=== PATIENT | female | born 1955 | race Caucasian/White ===

== ENCOUNTER 2016-11-03 13:31 | Inpatient (IN) | payer MEDICARE ==
[2016-11-03] MEDS ORDERED: DUONEB 0.5-3 MG/3 ml Neb IH ONE ×2 (13:43→13:54)
--- NOTE | 2016-11-03 13:54 | ERPHSYRPT ---
- History of Present Illness Time Seen by Provider: 11/03/16 13:49 Source: patient Exam Limitations: no limitations Physician History: 61-year-old white female arrives with complaint of short of breath cough symptoms for a week she has apparently been on Z-[place] patient states she wasn't short of breath cough is productive of clear sputum she denies any pain no nausea no vomiting patient is noted have a fever on arrival. Patient states she has been using an inhaler at home Past medical history includes seizures, arrhythmia, COPD, diabetes, hypothyroidism, anxiety, depression, chronic atrial fibrillation, patient is on Coumadin. Past surgical history includes cholecystectomy, hysterectomy, cardiac catheter, , hysterectomy, left knee surgery Timing/Duration: week(s) (one week) Activities at Onset: none Severity of Dyspnea-Max: moderate Severity of Dyspnea-Current: moderate Possible Cause: occasional episodes Associated Symptoms: constant, cough, fever, wheezing, No intermittent, No anxiety, No chest pain/discomfort, No edema, No insomnia, No loss of appetite, No lightheadedness, No weakness, No ankle swelling, No chills, No hemoptysis, No calf pain, No dizziness, No heaviness, No heart racing, No lightheadedness, No leg swelling, No muscle spasms feet, No muscle spasms hands, No painful breathing, No productive cough, No sweating, No tightness, No tingling face International travel in last 2 weeks: No Allergies/Adverse Reactions: codeine [Codeine] Allergy (Intermediate, Verified 11/03/16 13:52) Vomiting Home Medications: Amiodarone HCl 200 mg [Cordarone 200 MG] 200 mg PO HS 07/02/11 [History] Montelukast Sodium 10 mg [Singulair 10 MG] 10 mg PO DAILY 07/02/11 [History] Aspirin 81 mg PO DAILY 04/23/13 [History] Desvenlafaxine Succinate [Pristiq] 100 mg PO DAILY 04/23/13 [History] Multivitamin [Multi-Vitamin Daily] 1 tab PO DAILY 04/23/13 [History] Albuterol Sulfate [Proair Hfa] 2 puff IH Q4H PRN 07/28/13 [History] Calcium Carbonate/Vitamin D3 [Calcium 600-Vit D3 200 Tablet] 1 each PO TID 07/28 [History] Gabapentin [Neurontin] 800 mg PO TID 07/28/13 [History] Ropinirole HCl [Requip] 5 mg PO HS 07/28/13 [History] Trazodone HCl 50 mg [Desyrel 50 mg] 50 mg PO HS 07/28/13 [History] Cholecalciferol (Vitamin D3) [Vitamin D] 5,000 unit PO 2XW 07/03/14 [History] Clonazepam 0.5 mg [Klonopin 0.5 MG] 0.5 mg PO TID 07/03/14 [History] Cyclobenzaprine HCl [Flexeril] 5 mg PO TID 07/03/14 [History] Metformin HCl 800 mg PO DAILY 06/17/15 [History] Omeprazole 20 MG [Prilosec 20 mg] 20 mg PO DAILY 06/17/15 [History] Warfarin Sodium 5 mg [Coumadin 5 MG] 5 mg PO DAILY 06/17/15 [History] Duloxetine HCl 30 mg [Cymbalta 30 MG Capsule] 30 mg PO DAILY 07/25/15 [ History] Tiotropium [place] Inhaler [Spiriva 18 Mcg/Cap Inhaler] 1 ea IH DAILY [History] Albuterol 2.5 mg/3 ml Neb [Proventil 2.5 mg/3 ml Neb] 2.5 mg IH QID [History] Budesonide/Formoterol Fumarate [Symbicort 80-4.5 Mcg Inhaler] 2 puff IH DAILY [History] Fluticasone Propionate [Flonase NASAL] 2 sprays NS DAILY 11/06/15 [History ] Fenofibrate Nanocrystallized [Tricor] 48 mg PO HS 11/25/15 [History] Loratadine 10 mg [Claritin 10 mg] 10 mg PO DAILY 11/25/15 [History] Ondansetron HCl 4 mg PO .PRN 11/25/15 [History] Hx Tetanus, Diphtheria Vaccination/Date Given: Yes (unknown) Hx Influenza Vaccination/Date Given: No Hx Pneumococcal Vaccination/Date Given: Yes - Review of Systems Constitutional: Fever, No Chills, No Fatigue, No Lethargy, No Malaise, No Night Sweats, No Weakness, No Weight Loss Eyes: No Symptoms Ears, Nose, & Throat: No Ear Pain, No Ear Discharge, No Hearing Changes, No Tinnitus, No Nose Pain, No Nose Congestion, No Nose Discharge, No Sinus Drainage , No Epistaxis, No Mouth Pain, No Mouth Swelling, No Loose Teeth, No Throat Pain , No Throat Swelling, No Hoarse, No Painful Swallowing, No Snoring, No Stridor Respiratory: Cough, Dyspnea, Wheezing, No Cyanosis, No Dyspnea on Exertion (HOUGH) , No Other Cardiac: No Chest Pain, No Edema, No Syncope Abdominal/Gastrointestinal: No Abdominal Pain, No Nausea, No Vomiting, No Diarrhea, No Constipation, No Hematemesis, No Hematochezia, No Melena, No Dysphagia, No Appetite Changes Genitourinary Symptoms: No Dysuria Musculoskeletal: No Back Pain, No Neck Pain Skin: No Rash Neurological: No Dizziness, No Focal Weakness, No Sensory Changes Psychological: No Symptoms Endocrine: No Symptoms All Other Systems: Reviewed and Negative - Past Medical History Pertinent Past Medical History: Yes Neurological History: Seizures ENT History: No Pertinent History Cardiac History: Arrhythmia Respiratory History: COPD Endocrine Medical History: Diabetes Type II, Hypothyroidism Musculoskeletal History: No Pertinent History GI Medical History: No Pertinent History History: No Pertinent History Psycho-Social History: Anxiety, Depression Female Reproductive Disorders: No Pertinent History Other Medical History: CHRONIC AFIB, ovarian cyst removal - Past Surgical History Past Surgical History: Yes (GALL BLADDER HYSTERECTOMY) Neuro Surgical History: No Pertinent History Cardiac: Cardiac Catheterization Respiratory: No Pertinent History Gastrointestinal: Cholecystectomy Genitourinary: No Pertinent History Musculoskeletal: Orthopedic Surgery Female Surgical History: Section, Hysterectomy Other Surgical History: 2 sections, right knee sx - Social History Smoking Status: Current some day smoker How long have you smoked: 30 years Exposure to second hand smoke: No Drug Use: none Patient Lives Alone: Yes - Female History Hx Now: No - Nursing Vital Signs Nursing Vital Signs: Initial Vital Signs Temperature 101.1 F 11/03/16 13:45 Pulse Rate 110 H 11/03/16 13:45 Respiratory Rate 30 H 11/03/16 13:45 Blood Pressure 135/87 11/03/16 13:45 O2 Sat by Pulse Oximetry 80 L 11/03/16 13:45 Pain Scale Pain Intensity 0 - Physical Exam General Appearance: moderate distress, other (well-developed well-nourished white female appears to be short of breath) Eye Exam: PERRL/EOMI Ears, Nose, Throat Exam: hearing grossly normal, normal ENT inspection, pharyngeal erythema, No abnormal TM (R), No abnormal TM (L) Neck Exam: normal inspection, non-tender, supple Respiratory Exam: diminished breath sounds (lungs diminished breath s), rhonchi , wheezing, other Cardiovascular/Chest Exam: tachycardia Abdominal/Gastrointestinal Exam: soft, No tenderness, No distention, No mass Extremity Exam: non-tender, normal range of motion, normal inspection, no calf tenderness, no pedal edema Peripheral Pulses Exam: dorsalis-pedis (R): 2+, dorsalis-pedis (L): 2+ Neurologic Exam: alert, oriented x 3, cooperative, supervisor sewer system II-XII nml as tested, sensation nml, No motor deficits Skin Exam: normal color, warm, No dry SpO2 Interpretation: hypoxic (80) - Course Nursing assessment & vital signs reviewed: Yes EKG Interpreted by Me: RATE, A-fib, NORMAL AXIS, Other (EKG: atrial fibrillation 1 10 bpm, normal axis, no acute ST or T wave changes) - Radiology Exams Chest X-ray Interpretation: Discussed w/ radiologist, Other (chest x-ray: Impression: 1. Patchy by basilar airspace infiltrates are seen which appear to be new from the prior one view chest on July 25, 2015 findings consistent with by basilar pneumonia) - CT Exams Chest CT Interpretation: Discussed w/radiologist (CTA chest: Impression: 1. Nonocclusive pulmonary embolus right middle lobe lateral segment 2. Noncalcified right upper lobe pulmonary no primary neoplasia not exc. 3. Mediastinal and hilar lymphadenopathy with multiple additional small intra- pulmonary nodules. Differential diagnosis could include granulomatous disease including sarcoidosis, as well as other infectious etiologies and neoplasia clinical correlation is recommended. 4 short segment left lower lobe endobronchial mucus plugging. 5. Status post cholecystectomy) Ordered Tests: Active Orders 24 hr Category Date Time Status Bedrest with BRP/BSC ROUTINE Activity 11/03/16 18:02 Active Admission/Status Order ROUTINE Care 11/03/16 18:02 Active [employer]ic Helper STAT Care 11/03/16 13:54 Completed Code Status Order ROUTINE Care 11/03/16 18:02 Active EKG-ER Only TODAY Care 11/03/16 13:54 Completed IV Care Q6H Care 11/03/16 18:02 Active IV Insertion STAT Care 11/03/16 13:54 Completed Pulse Oximetry (ED) STAT Care 11/03/16 13:54 Completed Terrence Arango, Apply ROUTINE Care 11/03/16 18:02 Active Telemetry ROUTINE Care 11/03/16 18:02 Active Weight,Daily 0600 Care 11/03/16 18:02 Active cath [Cath for Specimen-Straight] STAT Care 11/03/16 14:11 Completed 1800 Calorie ADA Diet 11/03/16 Breakfast Active CHEST 1 VIEW (PORTABLE) Stat Exams 11/03/16 13:54 Completed CHEST WITH CONTRAST [CT] Stat Exams 11/03/16 15:55 Taken ARTERIAL BLOOD GASES Stat Lab 11/03/16 13:50 Completed BLOOD CULTURE Stat Lab 11/03/16 14:00 Received CBC W DIFF AM.LAB Lab 11/04/16 04:00 Ordered CBC W DIFF Stat Lab 11/03/16 13:55 Completed CMP AM.LAB Lab 11/04/16 04:00 Ordered CMP Stat Lab 11/03/16 13:55 Completed CULTURE, THROAT Stat Lab 11/03/16 14:10 Received CULTURE,URINE Stat Lab 11/03/16 13:55 Received D-DIMER QUANTITATION Stat Lab 11/03/16 13:55 Completed Lactic Acid Stat Lab 11/03/16 13:50 Completed NT PRO BNP Stat Lab 11/03/16 13:55 Completed PROTIME WITH INR Stat Lab 11/03/16 13:55 Completed PTT Stat Lab 11/03/16 13:55 Completed STREP SCREEN-BETA A Stat Lab 11/03/16 14:10 Completed TROPONIN Q3H Lab 11/03/16 14:30 Completed TROPONIN Q3H Lab 11/03/16 17:42 Received TROPONIN Q3H Lab 11/03/16 20:30 Ordered TROPONIN Q3H Lab 11/03/16 23:30 Ordered TROPONIN Q3H Lab 11/04/16 02:30 Ordered UA W/ MICROSCOPIC Stat Lab 11/03/16 13:55 Completed BiPap/CPAP Assessment STAT RT 11/03/16 14:45 Completed Oxygen NASAL CANNULA 6 lpm RT 11/03/16 18:02 Active Respiratory Nebulizer STAT RT 11/03/16 13:56 Completed Respiratory Nebulizer STAT RT 11/03/16 15:56 Completed Transfer Order Routine Transfer 11/03/16 Completed Medication Summary Generic Name Dose Route Start Last Admin Trade Name Xiomara PRN Reason Stop Dose Admin Albuterol/Ipratropium 3 ml 11/03/16 18:02 Duoneb 0.5-3 Mg/3 Ml Neb IH 12/03/16 18:01 Q4HPRN PRN SHORTNESS OF BREATH/WHEEZING Enoxaparin Sodium 60 mg 11/03/16 18:02 Enoxaparin Sodium 1 mg/kg (60 mg) 12/03/16 18:01 SQ Q12H GIA Azithromycin 500 mg in 250 mls @ 250 mls/hr 11/04/16 10:00 Zithromax 500 Mg/ 250 Ml Nacl Premix IV 12/04/16 09:59 Q24H10 GIA Ceftriaxone Sodium/Dextrose 1 g in 50 mls @ 100 mls/hr 11/04/16 10:00 Rocephin 1 Gm-D5w 50 Ml Bag IV 12/04/16 09:59 Q24H10 GIA Sodium Chloride 1,000 mls @ 100 mls/hr 11/03/16 18:02 Sodium Chloride 0.9% 1000 Ml IV 12/03/16 18:01 .Q10H GIA Insulin Aspart 0 unit 11/03/16 18:02 Novolog Insulin SQ 12/03/16 18:01 UD PRN HYPERGLYCEMIA Methylprednisolone Sodium Succinate 80 mg 11/03/16 18:02 Solu-Medrol 125 Mg IV 12/03/16 18:01 Q6H GIA Discontinued Medications Generic Name Dose Route Start Last Admin Trade Name Xiomara PRN Reason Stop Dose Admin Acetaminophen 650 mg 11/03/16 16:45 11/03/16 16:49 Tylenol 325 Mg PO 11/03/16 16:46 650 mg STAT STA Administration Acetaminophen Confirm 11/03/16 16:48 Tylenol 325 Mg Administered 11/03/16 16:49 Dose 650 mg .ROUTE .STK-MED ONE Albuterol Sulfate 2.5 mg 11/03/16 15:55 11/03/16 16:07 Proventil 2.5 Mg/3 Ml Neb IH 11/03/16 15:56 2.5 mg STAT ONE Administration Albuterol Sulfate Confirm 11/03/16 16:06 Proventil 2.5 Mg/3 Ml Neb Administered 11/03/16 16:07 Dose 2.5 mg IH .STK-MED ONE Albuterol/Ipratropium Confirm 11/03/16 13:43 Duoneb 0.5-3 Mg/3 Ml Neb Administered 11/03/16 13:44 Dose 3 ml IH .STK-MED ONE Albuterol/Ipratropium 3 ml 11/03/16 13:54 11/03/16 13:45 Duoneb 0.5-3 Mg/3 Ml Neb IH 11/03/16 13:55 3 ml STAT ONE Administration Enoxaparin Sodium 60 mg 11/03/16 17:41 11/03/16 17:45 Enoxaparin Sodium 1 mg/kg (60 mg) 11/03/16 17:42 60 mg SQ Administration STAT ONE Enoxaparin Sodium Confirm 11/03/16 17:43 Enoxaparin Sodium Administered 11/03/16 17:44 Dose 80 mg SQ .STK-MED ONE Ceftriaxone Sodium/Dextrose 1 g in 50 mls @ 100 mls/hr 11/03/16 15:55 16:05 Rocephin 1 Gm-D5w 50 Ml Bag IV 11/03/16 16:24 100 mls/hr STAT STA Administration Ceftriaxone Sodium/Dextrose Confirm 11/03/16 16:02 Rocephin 1 Gm-D5w 50 Ml Bag Administered 11/03/16 16:03 Dose 1 g in 50 mls @ ud IV .STK-MED ONE Methylprednisolone Sodium Succinate 125 mg 11/03/16 14:20 11/03/16 14:24 Solu-Medrol 125 Mg IV 11/03/16 14:21 125 mg STAT ONE Administration Methylprednisolone Sodium Succinate Confirm 11/03/16 14:22 Solu-Medrol 125 Mg Administered 11/03/16 14:23 Dose 125 mg .ROUTE .STK-MED ONE Lab/Rad Data: Laboratory Result Diagrams 11/03/16 13:55 11/03/16 13:55 Laboratory Results 11/03/16 11/03/16 11/03/16 Range/Units 14:30 14:10 13:55 WBC (4.0-10.5) K/mm3 RBC (4.1-5.4) M/mm3 Hgb (12.0-16.0) gm/dl Hct (35-47) % MCV (78-100) fl MCH (26-32) pg MCHC (32-36) g/dl RDW (11.5-14.0) % Plt Count (150-450) K/mm3 MPV (6-9.5) fl Gran % (36.0-66.0) % Lymphocytes % (24.0-44.0) % Monocytes % (0.0-12.0) % Eosinophils % (0.00-5.0) % Basophils % (0.0-0.4) % Basophils # (0-0.4) INR 1.21 (0.8-3.0) APTT 33.4 (25.3-37.0) SECONDS D-Dimer 1637 H* (0-500) ng/mL Puncture Site pCO2 (35-45) mmHg pO2 (75-100) mmHg Base Excess (-2.0-2.0) O2 Saturation (94-100) g/dF ABG pH (7.35-7.45) ABG HCO3 (22-28) ABG O2 Sat (Measured) (95-100) % Sam Test A-a Gradient a/A Ratio Hemoglobin Carboxyhemoglobin (0.0-6.9) % THgb Methemoglobin (1.4-1.5) % Potassium (3.5-5.1) Temperature C POC O2 Flow Rate % Sodium (136-145) mEq/L Chloride (98-107) mEq/L Carbon Dioxide (21-32) mEq/L Anion Gap (5-15) MEQ/L BUN (9-20) mg/dL Creatinine (0.55-1.30) mg/dl Estimated GFR ML/MIN Glucose (70-110) MG/DL Lactic Acid (0.4-2.0) Calcium (8.5-10.1) mg/dL Total Bilirubin (0.2-1.0) mg/dL AST (15-37) U/L ALT (12-78) U/L Alkaline Phosphatase (46-116) U/L Troponin I < 0.017 (0.000-0.056) ng/ml NT-Pro-B Natriuret Pep (0-125) pg/ml Serum Total Protein (6.4-8.2) gm/dL Albumin (3.4-5.0) g/dL Ur Collection Type Urine Color (YELLOW) Urine Appearance (CLEAR) Urine pH (5-6) Ur Specific [place] (1.005-1.025) Urine Protein (Negative) Urine Ketones (NEGATIVE) Urine Blood (0-5) Claudio/ul Urine Nitrite (NEGATIVE) Urine Bilirubin (NEGATIVE) Urine Urobilinogen (0-1) mg/dL Ur Leukocyte Esterase (NEGATIVE) Urine Microscopic RBC (0-2) /HPF Urine Microscopic WBC (0-5) /HPF Ur Epithelial Cells (FEW) /HPF Urine Bacteria (NEGATIVE) /HPF Urine Glucose (NEGATIVE) mg/dL Streptococcus Screen NEGATIVE (Negative) Specimen Received 11/03/16 11/03/16 11/03/16 Range/Units 13:55 13:55 13:55 WBC 8.0 (4.0-10.5) K/mm3 RBC 4.20 (4.1-5.4) M/mm3 Hgb 13.7 (12.0-16.0) gm/dl Hct 40.4 (35-47) % MCV 96.2 (78-100) fl MCH 32.6 H (26-32) pg MCHC 33.9 (32-36) g/dl RDW 13.6 (11.5-14.0) % Plt Count 179 (150-450) K/mm3 MPV 9.3 (6-9.5) fl Gran % 84.5 H (36.0-66.0) % Lymphocytes % 9.1 L (24.0-44.0) % Monocytes % 6.4 (0.0-12.0) % Eosinophils % 0.0 (0.00-5.0) % Basophils % 0.0 (0.0-0.4) % Basophils # 0 (0-0.4) INR (0.8-3.0) APTT (25.3-37.0) SECONDS D-Dimer (0-500) ng/mL Puncture Site pCO2 (35-45) mmHg pO2 (75-100) mmHg Base Excess (-2.0-2.0) O2 Saturation (94-100) g/dF ABG pH (7.35-7.45) ABG HCO3 (22-28) ABG O2 Sat (Measured) (95-100) % Sam Test A-a Gradient a/A Ratio Hemoglobin Carboxyhemoglobin (0.0-6.9) % THgb Methemoglobin (1.4-1.5) % Potassium 3.5 (3.5-5.1) Temperature C POC O2 Flow Rate % Sodium 138 (136-145) mEq/L Chloride 98 (98-107) mEq/L Carbon Dioxide 28.5 (21-32) mEq/L Anion Gap 14.8 (5-15) MEQ/L BUN 9 (9-20) mg/dL Creatinine 0.76 (0.55-1.30) mg/dl Estimated GFR > 60 ML/MIN Glucose 133 H (70-110) MG/DL Lactic Acid (0.4-2.0) Calcium 9.5 (8.5-10.1) mg/dL Total Bilirubin 0.50 (0.2-1.0) mg/dL AST 14 L (15-37) U/L ALT 11 L (12-78) U/L Alkaline Phosphatase 86 (46-116) U/L Troponin I (0.000-0.056) ng/ml NT-Pro-B Natriuret Pep 45 (0-125) pg/ml Serum Total Protein 7.9 (6.4-8.2) gm/dL Albumin 3.4 (3.4-5.0) g/dL Ur Collection Type CATH Urine Color YELLOW (YELLOW) Urine Appearance CLEAR (CLEAR) Urine pH 5.0 (5-6) Ur Specific [place] 1.010 (1.005-1.025) Urine Protein 1+ (Negative) Urine Ketones NEGATIVE (NEGATIVE) Urine Blood 250 (0-5) Claudio/ul Urine Nitrite NEGATIVE (NEGATIVE) Urine Bilirubin NEGATIVE (NEGATIVE) Urine Urobilinogen NORMAL (0-1) mg/dL Ur Leukocyte Esterase TRACE (NEGATIVE) Urine Microscopic RBC 0-2 (0-2) /HPF Urine Microscopic WBC 2-5 (0-5) /HPF Ur Epithelial Cells RARE (FEW) /HPF Urine Bacteria FEW (NEGATIVE) /HPF Urine Glucose NEGATIVE (NEGATIVE) mg/dL Streptococcus Screen (Negative) Specimen Received 11/03/16 1739 11/03/16 11/03/16 Range/Units 13:50 13:50 WBC (4.0-10.5) K/mm3 RBC (4.1-5.4) M/mm3 Hgb (12.0-16.0) gm/dl Hct (35-47) % MCV (78-100) fl MCH (26-32) pg MCHC (32-36) g/dl RDW (11.5-14.0) % Plt Count (150-450) K/mm3 MPV (6-9.5) fl Gran % (36.0-66.0) % Lymphocytes % (24.0-44.0) % Monocytes % (0.0-12.0) % Eosinophils % (0.00-5.0) % Basophils % (0.0-0.4) % Basophils # (0-0.4) INR (0.8-3.0) APTT (25.3-37.0) SECONDS D-Dimer (0-500) ng/mL Puncture Site RIGHT RADIAL pCO2 34 L (35-45) mmHg pO2 53 L (75-100) mmHg Base Excess 4.3 H (-2.0-2.0) O2 Saturation 91.4 L (94-100) g/dF ABG pH 7.51 H (7.35-7.45) ABG HCO3 27.1 (22-28) ABG O2 Sat (Measured) 94.2 L (95-100) % Sam Test YES A-a Gradient 133 a/A Ratio 0.28 Hemoglobin 14.1 Carboxyhemoglobin 1.9 (0.0-6.9) % THgb Methemoglobin 1.1 L (1.4-1.5) % Potassium 3.4 L (3.5-5.1) Temperature 37.0 C POC O2 Flow Rate 32 % Sodium (136-145) mEq/L Chloride (98-107) mEq/L Carbon Dioxide (21-32) mEq/L Anion Gap (5-15) MEQ/L BUN (9-20) mg/dL Creatinine (0.55-1.30) mg/dl Estimated GFR ML/MIN Glucose (70-110) MG/DL Lactic Acid 1.6 (0.4-2.0) Calcium (8.5-10.1) mg/dL Total Bilirubin (0.2-1.0) mg/dL AST (15-37) U/L ALT (12-78) U/L Alkaline Phosphatase (46-116) U/L Troponin I (0.000-0.056) ng/ml NT-Pro-B Natriuret Pep (0-125) pg/ml Serum Total Protein (6.4-8.2) gm/dL Albumin (3.4-5.0) g/dL Ur Collection Type Urine Color (YELLOW) Urine Appearance (CLEAR) Urine pH (5-6) Ur Specific [place] (1.005-1.025) Urine Protein (Negative) Urine Ketones (NEGATIVE) Urine Blood (0-5) Claudio/ul Urine Nitrite (NEGATIVE) Urine Bilirubin (NEGATIVE) Urine Urobilinogen (0-1) mg/dL Ur Leukocyte Esterase (NEGATIVE) Urine Microscopic RBC (0-2) /HPF Urine Microscopic WBC (0-5) /HPF Ur Epithelial Cells (FEW) /HPF Urine Bacteria (NEGATIVE) /HPF Urine Glucose (NEGATIVE) mg/dL Streptococcus Screen (Negative) Specimen Received - Progress Progress: re-examined Air Movement: fair Progress Note: 11/03/16 15:57 Patient feeling better after IV fluids Solu-Medrol duo neb, No signs of sepsis on labs lactate within normal limits, Unfortunately patient with an elevated d-dimer Will do CT of the chest. Patient will be given repeat albuterol also will start Rocephin. 11/03/16 16:13 I have discussed the patient's case with Dr. Hobbs. Will plan to admit full admission diagnosis COPD with exacerbation, pneumonia. CTA of the chest is pending patient is on Coumadin but INR is 1.2 Will follow- up when the results are available. 11/03/16 17:36 Patient with a nonocclusive pulmonary embolus in the right middle lobe lateral segment Will give patient Lovenox. - Departure Time of Disposition: 17:37 Departure Disposition: In-patient Admission Clinical Impression: COPD (chronic obstructive pulmonary disease) Qualifiers: COPD type: COPD with acute exacerbation Qualified Code(s): J44.1 - Chronic obstructive pulmonary disease with (acute) exacerbation Pneumonia Qualifiers: Pneumonia type: due to unspecified organism Laterality: bilateral Lung location : lower lobe of lung Qualified Code(s): J18.9 - Pneumonia, unspecified organism Condition: Fair Critical Care Time: No
[2016-11-03 14:20] LABS: Bilirubin NEGATIVE (NEGATIVE); Blood 250 Ery/ul (0-5); COMPLETE URINE MICROSCOPIC? YES; Collection Type CATH; Glucose NEGATIVE (NEGATIVE); Leukocyte Esterase TRACE (NEGATIVE)
[2016-11-03] MEDS ORDERED: solu-MEDROL 125 MG IV ONE (14:20)
[2016-11-03] MEDS ORDERED: solu-MEDROL 125 MG ONE (14:22)
[2016-11-03 14:27] LABS: A-aADO2 133; ARTERIAL BLD GAS O2 SATURATION 94.2 % (95-100); ARTERIAL BLOOD GAS BASE EXCESS 4.3 (-2.0-2.0); ARTERIAL BLOOD GAS FIO2 32 %; ARTERIAL BLOOD GAS PO2 53 mmHg (75-100); ARTERIAL BLOOD GAS pH 7.51 (7.35-7.45)
[2016-11-03 14:28] LABS: ALLEN TEST OK? YES
[2016-11-03 14:36] LABS: INR 1.21 (0.8-3.0); PROTIME 13.5 SECONDS (9.95-12.35)
[2016-11-03 14:38] LABS: PTT 33.4 SECONDS (25.3-37.0)
--- NOTE | 2016-11-03 14:38 | XRAY ---
Exam: AP upright portable chest film from 1400 hrs. on 11/03/2016. Comparison: Two-view chest from 11/06/2015 and AP portable chest film from 07/25/2015. Indication: Patient complains of "symptoms of pneumonia" 8 days. Patient states she has taken a Z-[place]ari[place], and it did not help. Findings: The transverse heart size appears normal. Mild bibasilar patchy infiltrates are seen. These findings are largely new from the portable chest radiograph of 07/25/2015. I believe there are some underlying chronic bilateral lung markings as well, but the patchy bibasilar infiltrates are the new significant finding. The remainder of the lung warner appears clear. The central pulmonary arteries are prominent representing no significant interval change. No pneumothorax or pleural effusion is seen. No acute osseous process is seen. Impression: 1. Patchy bibasilar air space infiltrates are seen which appear to be new from the prior one view chest on 07/25/2015. The findings are consistent with bibasilar pneumonia.
[2016-11-03 14:43] LABS: Granulocytes % 84.5 % (36.0-66.0); Lymphocytes % 9.1 % (24.0-44.0); Mean Cell Volume 96.2 fl (78-100); Mean Corpuscular Hemoglobin 32.6 pg (26-32); Mean Platelet Volume 9.3 fl (6-9.5); Monocytes % 6.4 % (0.0-12.0); Platelet Count 179 K/mm3 (150-450); Red Cell Distribution Width 13.6 % (11.5-14.0)
[2016-11-03 14:50] LABS: Bacteria FEW /HPF (NEGATIVE); Epithelial Cells RARE /HPF (FEW)
[2016-11-03 14:54] LABS: ALBUMIN 3.4 g/dL (3.4-5.0); ALKALINE PHOSPHATASE 86 U/L (46-116); ANION GAP 14.8 MEQ/L (5-15); BLOOD UREA NITROGEN 9 mg/dL (9-20); CHLORIDE 98 mEq/L (98-107); Carbon Dioxide 28.5 mEq/L (21-32); Glucose 133 MG/DL (70-110); Potassium 3.5 mEq/L (3.5-5.1); SGOT/AST 14 U/L (15-37); SGPT/ALT 11 U/L (12-78); SODIUM 138 mEq/L (136-145); Total Protein 7.9 gm/dL (6.4-8.2)
[2016-11-03] MEDS ORDERED: ROCEPHIN 1 Gm-D5w 50 ml Bag** 1 G/50 ML IVPB IV STA (15:55)
[2016-11-03] MEDS ORDERED: PROVENTIL 2.5 MG/3 ML NEB IH ONE ×2 (15:55→16:06)
[2016-11-03] MEDS ORDERED: HOLD METFORMIN PRODUCTS FOR 48 HOURS MC SCH (16:00)
[2016-11-03] MEDS ORDERED: ROCEPHIN 1 Gm-D5w 50 ml Bag** 1 G/50 ML IVPB IV ONE (16:02)
[2016-11-03] MEDS ORDERED: TYLENOL 325 MG PO STA (16:45)
[2016-11-03] MEDS ORDERED: TYLENOL 325 MG ONE (16:48)
[2016-11-03] MEDS ORDERED: ENOXAPARIN SODIUM SQ ONE ×2 (17:41→17:43)
[2016-11-03] MEDS ORDERED: DUONEB 0.5-3 MG/3 ml Neb IH PRN (18:02)
[2016-11-03] MEDS: Sodium Chloride 0.9% 1000 ML 1,000 ML IV SCH (18:41)
[2016-11-03] MEDS: ENOXAPARIN SODIUM SQ SCH (19:03)
[2016-11-03] MEDS: PROVENTIL 2.5 MG/3 ML NEB IH SCH ×2 (19:20→23:15)
[2016-11-03] MEDS: Advair Hfa 230/21 Mcg COMMON CANISTER IH SCH (19:23)
[2016-11-03] MEDS: Cordarone 200 MG PO SCH (23:06)
[2016-11-03] MEDS: Cyclobenzaprine 10 MG PO SCH (23:06)
[2016-11-03] MEDS: REQUIP 2MG TAB PO SCH (23:08)
[2016-11-03] MEDS: Neurontin 400 MG PO SCH (23:09)
[2016-11-03] MEDS: DESYREL 50 MG PO SCH (23:10)
[2016-11-03] MEDS: NovoLOG Insulin SQ PRN (23:13)
[2016-11-03] MEDS: solu-MEDROL 125 MG IV SCH (23:13)
[2016-11-04 03:16] LABS: Granulocytes % 92.8 % (36.0-66.0); Lymphocytes % 5.9 % (24.0-44.0); Mean Cell Volume 95.1 fl (78-100); Mean Platelet Volume 9.2 fl (6-9.5); Monocytes % 1.3 % (0.0-12.0); Platelet Count 168 K/mm3 (150-450); Red Blood Count 3.48 M/mm3 (4.1-5.4); Red Cell Distribution Width 13.2 % (11.5-14.0); White Blood Count 6.1 K/mm3 (4.0-10.5)
[2016-11-04] MEDS: PROVENTIL 2.5 MG/3 ML NEB IH SCH ×5 (03:16→19:00)
[2016-11-04 03:56] LABS: ALBUMIN 2.8 g/dL (3.4-5.0); ALKALINE PHOSPHATASE 74 U/L (46-116); BLOOD UREA NITROGEN 11 mg/dL (9-20); CHLORIDE 101 mEq/L (98-107); Carbon Dioxide 26.6 mEq/L (21-32); Glucose 239 MG/DL (70-110); Potassium 3.4 mEq/L (3.5-5.1); SGOT/AST 10 U/L (15-37); SGPT/ALT 9 U/L (12-78); SODIUM 138 mEq/L (136-145)
[2016-11-04] MEDS: solu-MEDROL 125 MG IV SCH ×5 (04:29→23:58)
[2016-11-04] MEDS: Sodium Chloride 0.9% 1000 ML 1,000 ML IV SCH ×2 (04:38→14:35)
[2016-11-04] MEDS: ENOXAPARIN SODIUM SQ SCH ×2 (05:54→18:16)
[2016-11-04] MEDS ORDERED: DUONEB 0.5-3 MG/3 ml Neb IH ONE (06:53)
[2016-11-04] MEDS: Advair Hfa 230/21 Mcg COMMON CANISTER IH SCH ×2 (06:55→19:00)
[2016-11-04] MEDS ORDERED: CHOLECALCIFEROL 5000 UNIT PO SCH (08:15)
[2016-11-04] MEDS ORDERED: NON-FORMULARY ITEM (Ondansetron Hcl [Ondansetron Hcl] 4 MG) PO SCH (08:15)
[2016-11-04] MEDS ORDERED: Ventolin Hfa MDI IH SCH (08:15)
[2016-11-04] MEDS ORDERED: ZOFRAN ODT 4 MG PO PRN (08:30)
[2016-11-04] MEDS ORDERED: PROVENTIL COMMON CANISTER IH PRN (08:31)
--- NOTE | 2016-11-04 09:11 | PCM.HP ---
History of Present Illness - Chief Complaint Chief Complaint: c/o shortness of breath for 2-3 days History of Present Illness: is a 61 year old female.came to ER with shortness of breath for 2-3 days. 61-year-old white female arrives with complaint of short of breath cough symptoms for a week she has apparently been on Z-[place] patient states she wasn't short of breath cough is productive of clear sputum she denies any pain no nausea no vomiting patient is noted have a fever on arrival. Patient states she has been using an inhaler at home Past medical history includes seizures, arrhythmia, COPD, diabetes, hypothyroidism, anxiety, depression, chronic atrial fibrillation, patient is on Coumadin. Past surgical history includes cholecystectomy, hysterectomy, cardiac catheter, , hysterectomy, left knee surgery Timing/Duration: week(s) (one week) Activities at Onset: none Severity of Dyspnea-Max: moderate Severity of Dyspnea-Current: moderate Possible Cause: occasional episodes Associated Symptoms: constant, cough, fever, wheezing, No intermittent, No anxiety, No chest pain/discomfort, No edema, No insomnia, No loss of appetite, No lightheadedness, No weakness, No ankle swelling, No chills, No hemoptysis, No calf pain, No dizziness, No heaviness, No heart racing, No lightheadedness, No leg swelling, No muscle spasms feet, No muscle spasms hands, No painful breathing, No productive cough, No sweating, No tightness, No tingling face International travel in last 2 weeks: No - Review of Systems Constitutional: No Fever, No Chills Eyes: No Symptoms Ears, Nose, & Throat: No Symptoms Respiratory: Cough, Orthopnea, Short Of Breath, Wheezing Cardiac: No Chest Pain, No Edema, No Syncope Abdominal/Gastrointestinal: No Abdominal Pain, No Nausea, No Vomiting, No Diarrhea Genitourinary Symptoms: No Dysuria Musculoskeletal: No Back Pain, No Neck Pain Skin: No Rash Neurological: No Dizziness, No Focal Weakness, No Sensory Changes Psychological: No Symptoms Endocrine: No Symptoms Hematologic/Lymphatic: No Symptoms Immunological/Allergic: No Symptoms Medications & Allergies Home Medications: Home Medication List Amiodarone HCl 200 mg [Cordarone 200 MG] 200 mg PO HS 07/02/11 [History Confirmed 11/03/16] Montelukast Sodium 10 mg [Singulair 10 MG] 10 mg PO DAILY 07/02/11 [History Confirmed 11/03/16] Levothyroxine Sodium 175 Mcg [Synthroid 175 MCG] 175 mcg PO DAILY #0 tablet 09/18 [Rx Confirmed 11/03/16] Aspirin 81 mg PO DAILY 04/23/13 [History Confirmed 11/03/16] Desvenlafaxine Succinate [Pristiq] 100 mg PO DAILY 04/23/13 [History Confirmed 11/03/16] Multivitamin [Multi-Vitamin Daily] 1 tab PO DAILY 04/23/13 [History Confirmed ] Albuterol Sulfate [Proair Hfa] 2 puff IH Q4H PRN 07/28/13 [History Confirmed ] Calcium Carbonate/Vitamin D3 [Calcium 600-Vit D3 200 Tablet] 1 each PO TID 07/28 [History Confirmed 11/03/16] Gabapentin [Neurontin] 800 mg PO TID 07/28/13 [History Confirmed 11/03/16] Ropinirole HCl [Requip] 5 mg PO HS 07/28/13 [History Confirmed 11/03/16] Trazodone HCl 50 mg [Desyrel 50 mg] 50 mg PO HS 07/28/13 [History Confirmed 11/03/16] Cholecalciferol (Vitamin D3) [Vitamin D] 5,000 unit PO 2XW 07/03/14 [History Confirmed 11/03/16] Cyclobenzaprine HCl [Flexeril] 5 mg PO TID 07/03/14 [History Confirmed 11/03/16] Metformin HCl 800 mg PO DAILY 06/17/15 [History Confirmed 11/03/16] Omeprazole 20 MG [Prilosec 20 mg] 20 mg PO DAILY 06/17/15 [History Confirmed ] Warfarin Sodium 5 mg [Coumadin 5 MG] 5 mg PO DAILY 06/17/15 [History Confirmed 11/03/16] Duloxetine HCl 30 mg [Cymbalta 30 MG Capsule] 60 mg PO DAILY 07/25/15 [ History Confirmed 11/03/16] Tiotropium Twain Inhaler [Spiriva 18 Mcg/Cap Inhaler] 1 ea IH DAILY [History Confirmed 11/03/16] Albuterol 2.5 mg/3 ml Neb [Proventil 2.5 mg/3 ml Neb] 2.5 mg IH QID [History Confirmed 11/03/16] Budesonide/Formoterol Fumarate [Symbicort 80-4.5 Mcg Inhaler] 2 puff IH DAILY [History Confirmed 11/03/16] Fluticasone Propionate [Flonase NASAL] 2 sprays NS DAILY 11/06/15 [ History Confirmed 11/03/16] Fenofibrate Nanocrystallized [Tricor] 48 mg PO HS 11/25/15 [History Confirmed ] Loratadine 10 mg [Claritin 10 mg] 10 mg PO DAILY 11/25/15 [History Confirmed 11/03/16] Ondansetron HCl 4 mg PO .PRN 11/25/15 [History Confirmed 11/03/16] Multivitamin [Qmu-Qtferi-[id number]] 1 each PO DAILY 11/03/16 [History Confirmed ] Allergies/Adverse Reactions: Allergies Allergy/AdvReac Type Severity Reaction Status Date / Time codeine [Codeine] Allergy Intermediate Vomiting Verified 11/03/16 13:52 - Past Medical History Past Medical History: Yes Neurological History: No Pertinent History ENT History: No Pertinent History Cardiac History: Arrhythmia Respiratory History: COPD Endocrine Medical History: Diabetes Type II, Hypothyroidism Musculoskelatal History: No Pertinent History GI Medical History: No Pertinent History History: No Pertinent History Pyscho-Social History: Anxiety, Depression Reproductive Disorders: No Pertinent History Comment: CHRONIC AFIB, ovarian cyst removal - Female History Are you now?: No - Past Surgical History Past Surgical History: Yes Neuro Surgical History: No Pertinent History Cardiac History: Cardiac Catheterization Respiratory Surgery: No Pertinent History GI Surgical History: Cholecystectomy Genitourinary Surgical Hx: No Pertinent History Musculskeletal Surgical Hx: Orthopedic Surgery Female Surgical History: Section, Hysterectomy Other Surgical History: 2 sections, right knee sx - Social History Smoking Status: Former smoker How long have you smoked: 30 years Exposure to second hand smoke: Yes Alcohol: None Drug Use: none - Physical Exam Vital Signs: Vital Signs - 24 hr Temp Pulse Resp BP Pulse Ox 11/04/16 07:00 97.7 F 76 18 98/60 92 L 11/04/16 06:59 76 24 95 11/04/16 04:00 96.5 F 81 26 H 92/51 93 L 11/04/16 03:16 81 26 H 93 L 11/04/16 00:00 98.0 F 83 18 113/72 93 L 11/03/16 23:15 79 27 H 93 L 11/03/16 20:00 98.4 F 91 H 18 93/65 93 L 11/03/16 19:20 86 28 H 95 11/03/16 18:13 98.4 F 91 H 18 93/65 93 L 11/03/16 17:47 90 24 106/62 95 11/03/16 17:46 91 H 18 106/62 96 11/03/16 17:13 96 H 24 90/40 95 11/03/16 16:13 106 H 20 121/58 94 L 11/03/16 16:09 105 H 26 H 93 L 11/03/16 15:09 105 H 24 116/75 97 11/03/16 14:36 110 H 32 H 91 L 11/03/16 14:29 107 H 24 126/76 11/03/16 14:01 96 11/03/16 13:45 101.1 F 110 H 30 H 135/87 80 L Oxygen-Last 24 hours O2 Percentage 5 Liters = 40% O2 Percentage 5 Liters = 40% O2 Percentage 5 Liters = 40% O2 Percentage 5 Liters = 40% O2 Percentage 5 Liters = 40% O2 Percentage 6 Liters = 44% O2 Percentage 4 Liters = 36% O2 Percentage 6 Liters = 44% O2 Percentage 4 Liters = 36% Oxygen Flowrate (L/min)-RT 5 General Appearance: no apparent distress, alert Neurologic Exam: alert, oriented x 3, cooperative, normal mood/affect, nml cerebellar function, nml station & gait, sensation nml, No motor deficits Eye Exam: PERRL/EOMI, eyes nml inspection Ears, Nose, Throat Exam: normal ENT inspection, TMs normal, pharynx normal, moist mucous membranes Neck Exam: normal inspection, non-tender, supple, full range of motion Respiratory Exam: diminished breath sounds, prolonged expirations, crackles/ rales, rhonchi, wheezing, No respiratory distress Cardiovascular Exam: regular rate/rhythm, normal heart sounds, normal peripheral pulses Gastrointestinal/Abdomen Exam: soft, normal bowel sounds, No tenderness, No mass Back Exam: normal inspection, normal range of motion, No CVA tenderness, No vertebral tenderness Extremity Exam: normal inspection, normal range of motion, pelvis stable Skin Exam: normal color, warm, dry, No rash Lymphatic Exam: No adenopathy Results - Labs Lab/Micro Results: Accuchecks Date 11/03/16 Accucheck Value: 349 Lab Results-Last 24 Hours 11/03/16 11/04/16 11/04/16 Range/Units 20:45 03:11 03:11 WBC 6.1 (4.0-10.5) K/mm3 RBC 3.48 L (4.1-5.4) M/mm3 Hgb 11.5 L (12.0-16.0) gm/dl Hct 33.1 L (35-47) % MCV 95.1 (78-100) fl MCH 33.0 H (26-32) pg MCHC 34.7 (32-36) g/dl RDW 13.2 (11.5-14.0) % Plt Count 168 (150-450) K/mm3 MPV 9.2 (6-9.5) fl Gran % 92.8 H (36.0-66.0) % Lymphocytes % 5.9 L (24.0-44.0) % Monocytes % 1.3 (0.0-12.0) % Eosinophils % 0.0 (0.00-5.0) % Basophils % 0.0 (0.0-0.4) % Basophils # 0 (0-0.4) Sodium (136-145) mEq/L Potassium (3.5-5.1) mEq/L Chloride (98-107) mEq/L Carbon Dioxide (21-32) mEq/L Anion Gap (5-15) MEQ/L BUN (9-20) mg/dL Creatinine (0.55-1.30) mg/dl Estimated GFR ML/MIN Glucose (70-110) MG/DL Hemoglobin A1c (4.5-6.2) Calcium (8.5-10.1) mg/dL Total Bilirubin (0.2-1.0) mg/dL AST (15-37) U/L ALT (12-78) U/L Alkaline Phosphatase (46-116) U/L Troponin I < 0.017 < 0.017 (0.000-0.056) ng/ml Serum Total Protein (6.4-8.2) gm/dL Albumin (3.4-5.0) g/dL 11/04/16 11/04/16 Range/Units 03:11 05:05 WBC (4.0-10.5) K/mm3 RBC (4.1-5.4) M/mm3 Hgb (12.0-16.0) gm/dl Hct (35-47) % MCV (78-100) fl MCH (26-32) pg MCHC (32-36) g/dl RDW (11.5-14.0) % Plt Count (150-450) K/mm3 MPV (6-9.5) fl Gran % (36.0-66.0) % Lymphocytes % (24.0-44.0) % Monocytes % (0.0-12.0) % Eosinophils % (0.00-5.0) % Basophils % (0.0-0.4) % Basophils # (0-0.4) Sodium 138 (136-145) mEq/L Potassium 3.4 L (3.5-5.1) mEq/L Chloride 101 (98-107) mEq/L Carbon Dioxide 26.6 (21-32) mEq/L Anion Gap 14.0 (5-15) MEQ/L BUN 11 (9-20) mg/dL Creatinine 0.81 (0.55-1.30) mg/dl Estimated GFR > 60 ML/MIN Glucose 239 H (70-110) MG/DL Hemoglobin A1c 5.7 (4.5-6.2) Calcium 8.7 (8.5-10.1) mg/dL Total Bilirubin 0.20 (0.2-1.0) mg/dL AST 10 L (15-37) U/L ALT 9 L (12-78) U/L Alkaline Phosphatase 74 (46-116) U/L Troponin I (0.000-0.056) ng/ml Serum Total Protein 7.0 (6.4-8.2) gm/dL Albumin 2.8 L (3.4-5.0) g/dL Accuchecks Date 11/03/16 Accucheck Value: 349 - Other Procedures and Tests Respiratory Therapy 11/03/16 18:07 Respiratory Nebulizer 11/03/16 19:00 Respiratory MDI BID Respiratory Nebulizer Q4H Assessment/Plan (1) COPD with acute exacerbation Current Visit: Yes Status: Acute Code(s): J44.1 - CHRONIC OBSTRUCTIVE PULMONARY DISEASE W (ACUTE) EXACERBATION (2) COPD (chronic obstructive pulmonary disease) Current Visit: Yes Status: Acute Qualifiers: COPD type: COPD with acute exacerbation Qualified Code(s): J44.1 - Chronic obstructive pulmonary disease with (acute) exacerbation (3) Pneumonia Current Visit: Yes Status: Acute Qualifiers: Pneumonia type: due to unspecified organism Laterality: bilateral Lung location: lower lobe of lung Qualified Code(s): J18.9 - Pneumonia, unspecified organism Code(s): J18.9 - PNEUMONIA, UNSPECIFIED ORGANISM (4) Diabetes mellitus type 2 Current Visit: Yes Status: Chronic Code(s): E11.9 - TYPE 2 DIABETES MELLITUS WITHOUT COMPLICATIONS (5) Pulmonary embolism and infarction Current Visit: Yes Status: Acute Code(s): I26.99 - OTHER PULMONARY EMBOLISM WITHOUT ACUTE COR PULMONALE
[2016-11-04] MEDS: Spiriva 18 Mcg/Cap Inhaler IH SCH (09:29)
[2016-11-04] MEDS ORDERED: NON-FORMULARY ITEM (Multivitamin [Multi-Vitamin Daily] 1 TAB) PO SCH (10:00)
[2016-11-04] MEDS ORDERED: LEVOTHYROXINE SODIUM 175 MCG PO SCH (10:00)
[2016-11-04] MEDS ORDERED: NON-FORMULARY ITEM (Calcium Carbonate/Vitamin D3 [Calcium 600-Vit D3 200 Tablet] 1 EACH) PO SCH (10:00)
[2016-11-04] MEDS ORDERED: NON-FORMULARY ITEM (Aspirin [Aspirin] 81 MG) PO SCH (10:00)
[2016-11-04] MEDS ORDERED: NON-FORMULARY ITEM (Desvenlafaxine Succinate [Pristiq] 100 MG) PO SCH (10:00)
[2016-11-04] MEDS ORDERED: FLUCELVAX QUAD 2017-2018 SYR IM ONE (10:00)
[2016-11-04] MEDS: Zithromax 500 MG/ 250 ML NaCl Premix 500 MG/250 ML IVPB IV SCH (10:00)
[2016-11-04] MEDS ORDERED: NON-FORMULARY ITEM (Omeprazole 20 Mg [Prilosec 20 Mg] 20 MG) PO SCH (10:00)
[2016-11-04] MEDS: Cymbalta 30 MG Capsule PO SCH (10:01)
[2016-11-04] MEDS: CLARITIN 10 MG PO SCH (10:01)
[2016-11-04] MEDS: THERAGRAN MULTIVITAMIN PO SCH (10:01)
[2016-11-04] MEDS: ECOTRIN 81 MG PO SCH (10:01)
[2016-11-04] MEDS: Singulair 10 MG PO SCH (10:01)
[2016-11-04] MEDS: SYNTHROID 75 MCG PO SCH (10:01)
[2016-11-04] MEDS: ROCEPHIN 1 Gm-D5w 50 ml Bag** 1 G/50 ML IVPB IV SCH (10:01)
[2016-11-04] MEDS: PRISTIQ ER PO SCH (10:01)
[2016-11-04] MEDS: Cyclobenzaprine 10 MG PO SCH ×2 (10:02→14:34)
[2016-11-04] MEDS: SYNTHROID 100 MCG PO SCH (10:02)
[2016-11-04] MEDS: Calcium 500MG W/Vit D Tablet PO SCH ×3 (10:02→22:46)
[2016-11-04] MEDS: Flonase NASAL NS SCH (10:02)
[2016-11-04] MEDS: Neurontin 400 MG PO SCH ×3 (10:02→22:47)
[2016-11-04] MEDS: Protonix 40MG Tablet PO SCH (10:02)
[2016-11-04] MEDS: NovoLOG Insulin SQ PRN ×2 (10:03→22:52)
--- NOTE | 2016-11-04 10:15 | XRAY ---
Exam: CTA of the chest with IV contrast from 11/03/2016. CTDI: 13.33 Comparison: CT of the chest with IV contrast from 07/29/2013. Indication: Shortness of breath, elevated d-dimer (1637). Technique: Post-IV contrast axial images were obtained through the chest during automated injection of 80 cc of Isovue-370 IV contrast material. Reconstructed coronal MIP and sagittal images were created and reviewed. Findings: The central pulmonary arteries enhance well. On axial images #29 and #30 of series #3 there is a subtle nonocclusive filling defect within the proximal artery supplying the lateral segment of the right middle lobe. This is believed to represent a small nonocclusive pulmonary embolus. No other pulmonary emboli are seen. Nor do I see evidence of thoracic aortic aneurysm or dissection. The thyroid gland appears grossly unremarkable. I again note moderate abnormal mediastinal lymphadenopathy within the right paratracheal projection, AP window, pretracheal space, subcarinal region, and both shoaib. This appears unchanged from 07/29/2013. Consider chronic infection or granulomatous disease. Is there any history of sarcoidosis? The heart size is normal without pericardial effusion. The peripheral lungs reveal a mildly irregular ovoid soft tissue mass at the lateral right lung apex measuring 2.0 cm in width and 1.2 cm in AP depth. This is new from 07/29/2013. This is worrisome for a primary lung neoplasm. I recommend a follow-up PET/CT fusion scan. Depending on the results, a percutaneous lung needle biopsy may be indicated. The lung warner again reveal an abnormal interstitial pattern with peripheral "tree in bud" opacities bilaterally, right greater than left. Also, these are located predominantly within the lower lung warner peripherally. This appears to be slightly less pronounced within the right lung on the current study. Differential diagnosis is broad and includes infectious bronchiolitis due to a wide assortment of infectious etiologies, connective tissue diseases, sarcoidosis, and neoplastic etiologies such as bronchoalveolar carcinoma (now known as minimally invasive adenocarcinoma). I see no pneumothorax, other dense lung consolidation, or pleural effusion. Images of the upper abdomen reveal evidence of prior cholecystectomy. The adrenal glands appear unremarkable. No other acute process is seen within the upper abdomen. Some atherosclerotic vascular calcification is seen. The skeleton reveals slight loss of the anterior vertebral body height of T7 representing no change from 11/06/2015. There is also a moderate anterior wedge fracture deformity of T8 which appears a bit more pronounced compared to 11/06/2015. The remainder of the thoracic spine appears unremarkable. On the sagittal images, there is a minimal step-off deformity within the body of the sternum which I believe is probably artifactual due to slight motion artifact. Correlate clinically as to point tenderness at this site. For example, see sagittal image #90 of series #103. Impression: 1. On axial images #29 and #30 of series #3, there appears to be a subtle nonocclusive pulmonary embolus within the proximal aspect of the arterial branch supplying the lateral segment of the right middle lobe. No other PE is seen. 2. New 2 cm in diameter soft tissue nodule at the lateral aspect of right lung apex within right upper lobe. This is worrisome for a primary lung neoplasm. Correlation with a PET CT fusion scan is recommended to determine to determine its metabolic activity. Subsequent percutaneous lung biopsy may be indicated. 3. Moderately extensive mediastinal and bilateral perihilar lymphadenopathy is again seen representing no significant change from the CT exam from 07/29/2013. Correlate clinically regarding chronic inflammatory disease resulting in reactive lymphadenopathy, or perhaps sarcoidosis. 4. Extensive peripheral "tree-in-bud" opacities are seen bilaterally, right greater than left, and more pronounced within the lung bases. This appears to be slightly improved as compared to 07/29/2013. See above discussion. No associated pleural effusion is seen. 5. Skeletal findings as discussed above.
[2016-11-04] MEDS ORDERED: Coumadin 5 MG PO SCH (18:00)
[2016-11-04] MEDS ORDERED: FENOFIBRATE NANOCRYSTALLIZED 48 MG PO SCH (22:00)
[2016-11-04] MEDS ORDERED: Tricor 145 MG PO SCH ×2 (22:00)
[2016-11-04] MEDS: Cordarone 200 MG PO SCH (22:46)
[2016-11-04] MEDS: REQUIP 2MG TAB PO SCH (22:49)
[2016-11-05] MEDS: Cyclobenzaprine 10 MG PO SCH ×2 (00:13→09:17)
[2016-11-05] MEDS: DESYREL 50 MG PO SCH (00:13)
[2016-11-05] MEDS: PROVENTIL 2.5 MG/3 ML NEB IH SCH ×4 (01:05→10:30)
[2016-11-05] MEDS: Sodium Chloride 0.9% 1000 ML 1,000 ML IV SCH (03:44)
[2016-11-05] MEDS: solu-MEDROL 125 MG IV SCH ×2 (05:58→10:59)
[2016-11-05] MEDS: ENOXAPARIN SODIUM SQ SCH (05:59)
[2016-11-05 07:15] LABS: INR 1.09 (0.8-3.0); PROTIME 12.1 SECONDS (9.95-12.35)
[2016-11-05] MEDS: Spiriva 18 Mcg/Cap Inhaler IH SCH (07:18)
[2016-11-05] MEDS: Advair Hfa 230/21 Mcg COMMON CANISTER IH SCH (07:18)
[2016-11-05] MEDS: Singulair 10 MG PO SCH (09:14)
[2016-11-05] MEDS: CLARITIN 10 MG PO SCH (09:14)
[2016-11-05] MEDS: PRISTIQ ER PO SCH (09:14)
[2016-11-05] MEDS: Cymbalta 30 MG Capsule PO SCH (09:15)
[2016-11-05] MEDS: Flonase NASAL NS SCH (09:15)
[2016-11-05] MEDS: Calcium 500MG W/Vit D Tablet PO SCH (09:15)
[2016-11-05] MEDS: Neurontin 400 MG PO SCH (09:15)
[2016-11-05] MEDS: SYNTHROID 75 MCG PO SCH (09:16)
[2016-11-05] MEDS: Protonix 40MG Tablet PO SCH (09:16)
[2016-11-05] MEDS: ECOTRIN 81 MG PO SCH (09:16)
[2016-11-05] MEDS: SYNTHROID 100 MCG PO SCH (09:16)
[2016-11-05] MEDS: THERAGRAN MULTIVITAMIN PO SCH (09:16)
[2016-11-05] MEDS: ROCEPHIN 1 Gm-D5w 50 ml Bag** 1 G/50 ML IVPB IV SCH (09:18)
[2016-11-05] MEDS: Zithromax 500 MG/ 250 ML NaCl Premix 500 MG/250 ML IVPB IV SCH (09:47)
[2016-11-05 12:55] VITALS: BP 136/67; PULSE 92; O2SAT 95
--- NOTE | 2016-11-05 13:02 | PCM.DS ---
Discharge Summary Date of Admission: 11/03/16 17:59 Admitting Physician: GEO WHIPPLE Primary Care Provider: GEO WHIPPLE Allergies Allergies codeine [Codeine] Allergy (Intermediate, Verified 11/03/16 13:52) Vomiting Hospital Summary - Hospital Course Hospital Course: Chief Complaint Diagnosis c/o shortness of breath for 2-3 days Allergies Allergy/AdvReac Type Severity Reaction Status Date / Time codeine [Codeine] Allergy Intermediate Vomiting Verified 11/03/16 13:52 Vital Signs (Last 24 hours) Temp Pulse Resp BP Pulse Ox 11/05/16 12:00 92 H 20 136/67 95 11/05/16 10:00 82 78 H 96 11/05/16 08:00 20 11/05/16 07:15 97.7 F 82 20 117/62 97 11/05/16 06:00 90 18 92 L 11/05/16 04:00 98.1 F 80 21 115/71 94 L 11/05/16 02:49 81 21 94 L 11/05/16 00:00 97.9 F 86 23 108/63 94 L 11/04/16 20:00 97.7 F 79 24 98/57 94 L 11/04/16 19:01 81 18 92 L 11/04/16 16:00 97.6 F 80 18 95/56 94 L 11/04/16 15:00 80 22 96 Home Medications Medication Instructions Recorded Confirmed Last Taken Type Multivitamin [[id number]] 1 each PO DAILY 11/03/16 11/03/16 11/03/16 08: 00 History 1 TAB Current Medications Generic Name Dose Route Start Last Admin Trade Name Freq PRN Reason Stop Dose Admin Albuterol Sulfate 2.5 mg 11/03/16 19:00 11/05/16 10:30 Proventil 2.5 Mg/3 Ml Neb IH 12/03/16 18:59 2.5 mg Q4HRT GIA Administration Albuterol Sulfate 2 puff 11/04/16 08:31 Proventil Common Canister IH 12/04/16 08:30 Q4H PRN PRN Albuterol/Ipratropium 3 ml 11/03/16 18:02 Duoneb 0.5-3 Mg/3 Ml Neb IH 12/03/16 18:01 Q4HPRN PRN SHORTNESS OF BREATH/WHEEZING Amiodarone HCl 200 mg 11/03/16 23:00 11/04/16 22:46 Cordarone 200 Mg PO 12/03/16 22:59 200 mg HS GIA Administration Aspirin 81 mg 11/04/16 10:00 11/05/16 09:16 Ecotrin 81 Mg PO 12/04/16 09:59 81 mg DAILY GIA Administration Calcium Carbonate 1 tab 11/04/16 10:00 11/05/16 09:15 Calcium 500mg W/Vit D Tablet PO 12/04/16 09:59 1 tab TID GIA Administration Cholecalciferol 5,000 unit 11/07/16 10:00 Vitamin D PO 12/07/16 09:59 SuTh GIA Cyclobenzaprine HCl 5 mg 11/03/16 23:00 11/05/16 09:17 Cyclobenzaprine 10 Mg PO 12/03/16 22:59 5 mg TID GIA Administration Duloxetine HCl 60 mg 11/04/16 10:00 11/05/16 09:15 Cymbalta 30 Mg Capsule PO 12/04/16 09:59 60 mg DAILY GIA Administration Enoxaparin Sodium 60 mg 11/04/16 18:00 11/05/16 05:59 Enoxaparin Sodium SQ 12/04/16 17:59 60 mg Q12H GIA Administration Fenofibrate 72.5 mg 11/04/16 22:00 11/04/16 22:48 Tricor 145 Mg PO 12/04/16 21:59 72.5 mg HS GIA Administration Fluticasone Propionate 0 gm 11/04/16 10:00 11/05/16 09:15 Flonase Nasal NS 12/04/16 09:59 Not Given DAILY GIA Gabapentin 800 mg 11/03/16 23:00 11/05/16 09:15 Neurontin 400 Mg PO 12/03/16 22:59 800 mg TID GIA Administration Azithromycin 500 mg in 250 mls @ 250 mls/hr 11/04/16 10:00 11/05/16 09:47 Zithromax 500 Mg/ 250 Ml Nacl Premix IV 12/04/16 09:59 250 mls/hr Q24H10 GIA Administration Ceftriaxone Sodium/Dextrose 1 g in 50 mls @ 100 mls/hr 11/04/16 10:00 09:18 Rocephin 1 Gm-D5w 50 Ml Bag IV 12/04/16 09:59 100 mls/hr Q24H10 GIA Administration Sodium Chloride 1,000 mls @ 40 mls/hr 11/03/16 18:02 11/05/16 03:44 Sodium Chloride 0.9% 1000 Ml IV 12/03/16 18:01 100 mls/hr .Q24H GIA Administration Insulin Aspart 0 unit 11/03/16 18:02 11/04/16 22:52 Novolog Insulin SQ 12/03/16 18:01 2 unit UD PRN Administration HYPERGLYCEMIA Levothyroxine Sodium 100 mcg 11/04/16 10:00 11/05/16 09:16 Synthroid 100 Mcg PO 12/04/16 09:59 100 mcg DAILY GIA Administration Levothyroxine Sodium 75 mcg 11/04/16 10:00 11/05/16 09:16 Synthroid 75 Mcg PO 12/04/16 09:59 75 mcg DAILY GIA Administration Loratadine 10 mg 11/04/16 10:00 11/05/16 09:14 Claritin 10 Mg PO 12/04/16 09:59 10 mg DAILY GIA Administration Methylprednisolone Sodium Succinate 80 mg 11/03/16 18:02 11/05/16 10:59 Solu-Medrol 125 Mg IV 12/03/16 18:01 80 mg Q6H GIA Administration Montelukast Sodium 10 mg 11/04/16 10:00 11/05/16 09:14 Singulair 10 Mg PO 12/04/16 09:59 10 mg DAILY GIA Administration Multivitamins 1 tab 11/04/16 10:00 11/05/16 09:16 Theragran Multivitamin PO 12/04/16 09:59 1 tab DAILY GIA Administration Non-Formulary Medication 1 each 11/03/16 16:00 Hold Metformin Products For 48 Hours MC 11/05/16 16:00 UD GIA Ondansetron HCl 4 mg 11/04/16 08:30 Zofran Odt 4 Mg PO 12/04/16 08:29 Q4H PRN PRN Pantoprazole Sodium 40 mg 11/04/16 10:00 11/05/16 09:16 Protonix 40mg Tablet PO 12/04/16 09:59 40 mg DAILY GIA Administration Ropinirole HCl 5 mg 11/03/16 23:00 11/04/16 22:49 Requip 2mg Tab PO 12/03/16 22:59 5 mg HS GIA Administration Fluticasone/Salmeterol 2 puff 11/03/16 19:00 11/05/16 07:18 Advair Hfa 230/21 Mcg Common Canister* IH 12/03/16 18:59 2 puff BIDRT GIA Administration Tiotropium [place] 1 ea 11/04/16 10:00 11/05/16 07:18 Spiriva 18 Mcg/Cap Inhaler IH 12/04/16 09:59 1 ea DAILY GIA Administration Trazodone HCl 50 mg 11/03/16 23:00 11/05/16 00:13 Desyrel 50 Mg PO 12/03/16 22:59 Not Given HS GIA Warfarin Sodium 5 mg 11/04/16 18:00 11/04/16 18:15 Coumadin 5 Mg PO 12/04/16 17:59 5 mg COU GIA Administration Discontinued Medications Generic Name Dose Route Start Last Admin Trade Name Freq PRN Reason Stop Dose Admin Acetaminophen 650 mg 11/03/16 16:45 11/03/16 16:49 Tylenol 325 Mg PO 11/03/16 16:46 650 mg STAT STA Administration Acetaminophen Confirm 11/03/16 16:48 Tylenol 325 Mg Administered 11/03/16 16:49 Dose 650 mg .ROUTE .STK-MED ONE Albuterol Sulfate 2.5 mg 11/03/16 15:55 11/03/16 16:07 Proventil 2.5 Mg/3 Ml Neb IH 11/03/16 15:56 2.5 mg STAT ONE Administration Albuterol Sulfate Confirm 11/03/16 16:06 Proventil 2.5 Mg/3 Ml Neb Administered 11/03/16 16:07 Dose 2.5 mg IH .STK-MED ONE Albuterol/Ipratropium Confirm 11/03/16 13:43 Duoneb 0.5-3 Mg/3 Ml Neb Administered 11/03/16 13:44 Dose 3 ml IH .STK-MED ONE Albuterol/Ipratropium 3 ml 11/03/16 13:54 11/03/16 13:45 Duoneb 0.5-3 Mg/3 Ml Neb IH 11/03/16 13:55 3 ml STAT ONE Administration Albuterol/Ipratropium Confirm 11/04/16 06:53 Duoneb 0.5-3 Mg/3 Ml Neb Administered 11/04/16 06:54 Dose 3 ml IH .STK-MED ONE Enoxaparin Sodium 60 mg 11/03/16 17:41 11/03/16 17:45 Enoxaparin Sodium 1 mg/kg (60 mg) 11/03/16 17:42 60 mg SQ Administration STAT ONE Enoxaparin Sodium Confirm 11/03/16 17:43 Enoxaparin Sodium Administered 11/03/16 17:44 Dose 80 mg SQ .STK-MED ONE Enoxaparin Sodium 60 mg 11/03/16 18:02 11/04/16 05:54 Enoxaparin Sodium 1 mg/kg (60 mg) 12/03/16 18:01 60 mg SQ Administration Q12H GIA Fenofibrate 72.5 mg 11/04/16 22:00 11/04/16 22:50 Tricor 145 Mg PO 12/04/16 21:59 Not Given HS GIA Ceftriaxone Sodium/Dextrose 1 g in 50 mls @ 100 mls/hr 11/03/16 15:55 16:05 Rocephin 1 Gm-D5w 50 Ml Bag IV 11/03/16 16:24 100 mls/hr STAT STA Administration Ceftriaxone Sodium/Dextrose Confirm 11/03/16 16:02 Rocephin 1 Gm-D5w 50 Ml Bag Administered 11/03/16 16:03 Dose 1 g in 50 mls @ ud IV .STK-MED ONE Influenza Virus Vaccine Quadrival 60 mcg 11/04/16 10:00 11/04/16 10:34 Flucelvax Quad 1561-9520 Syr IM 11/04/16 10:01 60 mcg .ONCE ONE Administration Methylprednisolone Sodium Succinate 125 mg 11/03/16 14:20 11/03/16 14:24 Solu-Medrol 125 Mg IV 11/03/16 14:21 125 mg STAT ONE Administration Methylprednisolone Sodium Succinate Confirm 11/03/16 14:22 Solu-Medrol 125 Mg Administered 11/03/16 14:23 Dose 125 mg .ROUTE .STK-MED ONE Intake & Output (Last 24 hours) 11/03/16 11/04/16 11/05/16 11/06/16 11:59 11:59 11:59 11:59 Intake Total 2173 3229 Output Total 1000 1200 Balance 1173 2029 Weight 62.851 kg 65.045 kg Microbiology Results (Last 24 hours) 11/03/16 13:55 Clean Catch Midstream Urine Culture - Final NO GROWTH 11/03/16 13:55 Blood - Pending 11/03/16 13:55 Blood Blood Culture - Preliminary NO GROWTH TO DATE 11/03/16 14:00 Blood - Pending 11/03/16 14:00 Blood Blood Culture - Preliminary NO GROWTH TO DATE 11/03/16 14:10 Throat Throat Culture - Preliminary NO BETA GROWTH TO DATE Laboratory Results (Last 24 hours) 11/05/16 05:05 INR 1.09 Orders (Last 24 hours) Category Date Time Status PROTIME WITH INR AM.LAB Lab 11/05/16 05:05 Completed Cholecalciferol (Vitamin D3) [Vitamin D] Med 11/07/16 10:00 Active 5,000 unit PO SuTh Enoxaparin Sodium [Enoxaparin Sodium] Med 11/04/16 18:00 Active 60 mg SQ Q12H Fenofibrate,Micronized 145 mg* [Tricor 145 MG] Med 11/04/16 22:00 Active 72.5 mg PO HS Fenofibrate,Micronized 145 mg* [Tricor 145 MG] Med 11/04/16 22:00 Discontinued 72.5 mg PO HS Warfarin Sodium 5 mg [Coumadin 5 MG] Med 11/04/16 18:00 Active 5 mg PO COU Patient Care Notes (Last 24 hours) 11/05/16 01:07 Respiratory Note by [facility] DID NOT GIVE PT HER 2300 TX FOR 11/04 I WAS IN THE ER WITH ONE PT AND THEN STRAIGHT TO SURGERY W/ ANOTHER PT. Initialized on 11/05/16 01:07 - END OF NOTE - Vitals & Intake/Output Vital Signs: Vital Signs Temperature 97.7 F 11/05/16 07:15 Pulse Rate 92 H 11/05/16 12:00 Respiratory Rate 20 11/05/16 12:00 Blood Pressure 136/67 11/05/16 12:00 O2 Sat by Pulse Oximetry 95 11/05/16 12:00 Oxygen-Last Documented O2 Percentage 3 Liters = 32% Intake & Output: Intake & Output 11/03/16 11/04/16 11/05/16 11/06/16 11:59 11:59 11:59 11:59 Intake Total 2173 3229 Output Total 1000 1200 Balance 1173 2029 Weight 62.851 kg 65.045 kg - Lab Result Diagrams: 11/04/16 03:11 11/04/16 03:11 Lab Results-Last 24 Hrs: Accuchecks Date 11/05/16 Date 11/05/16 Date 11/04/16 Time 12:02 Time 07:08 Accucheck Value: 182 Accucheck Value: 160 Accucheck Value: 221 Accucheck Value: 197 Lab Results-Last 24 Hours 11/05/16 Range/Units 05:05 INR 1.09 (0.8-3.0) Micro Results-Entire Visit: Accuchecks Date 11/05/1611/05/16 Date 11/04/16 Time 12:02 Time 07:08 Accucheck Value: 182 Accucheck Value: 160 Accucheck Value: 221 Accucheck Value: 197 - Procedures and Test Procedures and Tests throughout Hospitalization: Therapy Orders & Screens 11/03/16 18:07 Respiratory Nebulizer Comment: DUONEB Q4PRN Diagnosis: Shortness of Breath 11/03/16 18:31 RT Screen per Nursing Assess Comment: Protocol Order Physician Instructions: Greater than 3 points order RT Admission Screen Reason For Exam: Triggered on Admission Diagnosis: sob, copd, pneumonia Diagnosis: sob, copd, pneumonia Pneumonia: Yes Home O2: Yes Asthma: No CHF: No Home CPAP/BIPAP: No Home Nebs/MDI: Yes Total Points: 13 11/03/16 19:00 Respiratory MDI BID Comment: LEWIS 230/21 BID Diagnosis: Shortness of Breath Respiratory Nebulizer Q4H Comment: ALBUTEROL Q4 Diagnosis: Shortness of Breath Discharge Exam General Appearance: no apparent distress, alert Neurologic Exam: alert, oriented x 3, cooperative, normal mood/affect, nml cerebellar function, sensation nml, No motor deficits Skin Exam: normal color, warm, dry Eye Exam: PERRL, EOMI, eyes nml inspection Ears, Nose, Throat Exam: normal ENT inspection, pharynx normal, moist mucous membranes Neck Exam: normal inspection, non-tender, supple, full range of motion Respiratory Exam: normal breath sounds, lungs clear, No respiratory distress Cardiovascular Exam: regular rate/rhythm, normal heart sounds Gastrointestinal/Abdomen Exam: soft, No tenderness, No mass Extremity Exam: normal inspection, normal range of motion Back Exam: normal inspection, normal range of motion, No CVA tenderness, No vertebral tenderness Pelvic Exam: deferred Rectal Exam: deferred Final Diagnosis/Problem List - Final Discharge Diagnosis/Problem (1) COPD with acute exacerbation Current Visit: Yes Status: Resolved (2) COPD (chronic obstructive pulmonary disease) Current Visit: Yes Status: Chronic (3) Pneumonia Current Visit: Yes Status: Resolved (4) Diabetes mellitus type 2 Current Visit: Yes Status: Chronic (5) Pulmonary embolism and infarction Current Visit: Yes Status: Acute Assessment & Plan: Last Vital Signs Temp 97.7 F 11/05/16 07:15 Pulse 92 H 11/05/16 12:00 Resp 20 11/05/16 12:00 BP 136/67 11/05/16 12:00 Pulse Ox 95 11/05/16 12:00 Allergies codeine [Codeine] Allergy (Intermediate, Verified 11/03/16 13:52) Vomiting Active Medications Albuterol Sulfate (Proventil 2.5 Mg/3 Ml Neb) 2.5 mg IH Q4HRT GIA Stop: 12/03/16 18:59 Last Admin: 11/05/16 10:30 Dose: 2.5 mg Albuterol Sulfate (Proventil Common Canister) 2 puff IH Q4H PRN PRN Stop: 12/04/16 08:30 Albuterol/Ipratropium (Duoneb 0.5-3 Mg/3 Ml Neb) 3 ml IH Q4HPRN PRN PRN Reason: SHORTNESS OF BREATH/WHEEZING Stop: 12/03/16 18:01 Amiodarone HCl (Cordarone 200 Mg) 200 mg PO HS GIA Stop: 12/03/16 22:59 Last Admin: 11/04/16 22:46 Dose: 200 mg Aspirin (Ecotrin 81 Mg) 81 mg PO DAILY GIA Stop: 12/04/16 09:59 Last Admin: 11/05/16 09:16 Dose: 81 mg Calcium Carbonate (Calcium 500mg W/Vit D Tablet) 1 tab PO TID GIA Stop: 12/04/16 09:59 Last Admin: 11/05/16 09:15 Dose: 1 tab Cholecalciferol (Vitamin D) 5,000 unit PO SuTh GIA Stop: 12/07/16 09:59 Cyclobenzaprine HCl (Cyclobenzaprine 10 Mg) 5 mg PO TID [facility] Stop: 12/03/16 22:59 Last Admin: 11/05/16 09:17 Dose: 5 mg Duloxetine HCl (Cymbalta 30 Mg Capsule) 60 mg PO DAILY GIA Stop: 12/04/16 09:59 Last Admin: 11/05/16 09:15 Dose: 60 mg Enoxaparin Sodium (Enoxaparin Sodium) 60 mg SQ Q12H GIA Stop: 12/04/16 17:59 Last Admin: 11/05/16 05:59 Dose: 60 mg Fenofibrate (Tricor 145 Mg) 72.5 mg PO [facility] Stop: 12/04/16 21:59 Last Admin: 11/04/16 22:48 Dose: 72.5 mg Fluticasone Propionate (Flonase Nasal) 0 gm NS DAILY GIA Stop: 12/04/16 09:59 Last Admin: 11/05/16 09:15 Dose: Not Given Gabapentin (Neurontin 400 Mg) 800 mg PO TID GIA Stop: 12/03/16 22:59 Last Admin: 11/05/16 09:15 Dose: 800 mg Azithromycin (Zithromax 500 Mg/ 250 Ml Nacl Premix) 500 mg in 250 mls @ 250 mls /hr IV Q24H10 GIA Stop: 12/04/16 09:59 Last Admin: 11/05/16 09:47 Dose: 250 mls/hr Ceftriaxone Sodium/Dextrose (Rocephin 1 Gm-D5w 50 Ml Bag) 1 g in 50 mls @ 100 mls/hr IV Q24H10 GIA Stop: 12/04/16 09:59 Last Admin: 11/05/16 09:18 Dose: 100 mls/hr Sodium Chloride (Sodium Chloride 0.9% 1000 Ml) 1,000 mls @ 40 mls/hr IV .Q24H GIA Stop: 12/03/16 18:01 Last Admin: 11/05/16 03:44 Dose: 100 mls/hr Insulin Aspart (Novolog Insulin) 0 unit SQ UD PRN PRN Reason: HYPERGLYCEMIA Stop: 12/03/16 18:01 Last Admin: 11/04/16 22:52 Dose: 2 unit Levothyroxine Sodium (Synthroid 100 Mcg) 100 mcg PO DAILY GIA Stop: 12/04/16 09:59 Last Admin: 11/05/16 09:16 Dose: 100 mcg Levothyroxine Sodium (Synthroid 75 Mcg) 75 mcg PO DAILY GIA Stop: 12/04/16 09:59 Last Admin: 11/05/16 09:16 Dose: 75 mcg Loratadine (Claritin 10 Mg) 10 mg PO DAILY GIA Stop: 12/04/16 09:59 Last Admin: 11/05/16 09:14 Dose: 10 mg Methylprednisolone Sodium Succinate (Solu-Medrol 125 Mg) 80 mg IV Q6H GIA Stop: 12/03/16 18:01 Last Admin: 11/05/16 10:59 Dose: 80 mg Montelukast Sodium (Singulair 10 Mg) 10 mg PO DAILY GIA Stop: 12/04/16 09:59 Last Admin: 11/05/16 09:14 Dose: 10 mg Multivitamins (Theragran Multivitamin) 1 tab PO DAILY GIA Stop: 12/04/16 09:59 Last Admin: 11/05/16 09:16 Dose: 1 tab Non-Formulary Medication (Hold Metformin Products For 48 Hours) 1 each MC UD [facility] Stop: 11/05/16 16:00 Ondansetron HCl (Zofran Odt 4 Mg) 4 mg PO Q4H PRN PRN Stop: 12/04/16 08:29 Pantoprazole Sodium (Protonix 40mg Tablet) 40 mg PO DAILY GIA Stop: 12/04/16 09:59 Last Admin: 11/05/16 09:16 Dose: 40 mg Ropinirole HCl (Requip 2mg Tab) 5 mg PO HS [facility] Stop: 12/03/16 22:59 Last Admin: 11/04/16 22:49 Dose: 5 mg Fluticasone/Salmeterol (Advair Hfa 230/21 Mcg Common Canister*) 2 puff IH BIDRT [facility] Stop: 12/03/16 18:59 Last Admin: 11/05/16 07:18 Dose: 2 puff Tiotropium [place] (Spiriva 18 Mcg/Cap Inhaler) 1 ea IH DAILY [facility] Stop: 12/04/16 09:59 Last Admin: 11/05/16 07:18 Dose: 1 ea Trazodone HCl (Desyrel 50 Mg) 50 mg PO [facility] Stop: 12/03/16 22:59 Last Admin: 11/05/16 00:13 Dose: Not Given Warfarin Sodium (Coumadin 5 Mg) 5 mg PO COU [facility] Stop: 12/04/16 17:59 Last Admin: 11/04/16 18:15 Dose: 5 mg Intake & Output 11/05/16 11/06/16 11:59 11:59 Intake Total 3229 Output Total 1200 Balance 2028 Weight 65.045 kg Orders 11/04/16 18:00 Enoxaparin Sodium [Enoxaparin Sodium] 60 mg SQ Q12H Warfarin Sodium 5 mg [Coumadin 5 MG] 5 mg PO COU 11/04/16 22:00 Fenofibrate,Micronized 145 mg* [Tricor 145 MG] 72.5 mg PO HS 11/07/16 10:00 Cholecalciferol (Vitamin D3) [Vitamin D] 5,000 unit PO SuTh Lab Tests 11/05/16 05:05 INR 1.09 Microbiology 11/03/16 13:55 Clean Catch Midstream Urine Culture - Final NO GROWTH 11/03/16 13:55 Blood Blood Culture - Preliminary NO GROWTH TO DATE 11/03/16 14:00 Blood Blood Culture - Preliminary NO GROWTH TO DATE 11/03/16 14:10 Throat Throat Culture - Preliminary NO BETA GROWTH TO DATE xarelto started 15 mg po bid for 21 days and then 20 mg daily. Discontinue coumadin - Discharge Discharge Date: 11/05/16 Disposition: Home, Self-Care Condition: Stable Prescriptions: New Cephalexin Mh 500 mg [Keflex 500 mg] 500 mg PO QID #20 capsule Continue Montelukast Sodium 10 mg [Singulair 10 MG] 10 mg PO DAILY Amiodarone HCl 200 mg [Cordarone 200 MG] 200 mg PO HS Levothyroxine Sodium 175 Mcg [Synthroid 175 MCG] 175 mcg PO DAILY #0 tablet Multivitamin [Multi-Vitamin Daily] 1 tab PO DAILY Desvenlafaxine Succinate [Pristiq] 100 mg PO DAILY Aspirin 81 mg PO DAILY Gabapentin [Neurontin] 800 mg PO TID Albuterol Sulfate [Proair Hfa] 2 puff IH Q4H PRN Trazodone HCl 50 mg [Desyrel 50 mg] 50 mg PO HS Calcium Carbonate/Vitamin D3 [Calcium 600-Vit D3 200 Tablet] 1 each PO TID Ropinirole HCl [Requip] 5 mg PO HS Cyclobenzaprine HCl [Flexeril] 5 mg PO TID Cholecalciferol (Vitamin D3) [Vitamin D] 5,000 unit PO 2XW Warfarin Sodium 5 mg [Coumadin 5 MG] 5 mg PO DAILY Omeprazole 20 MG [Prilosec 20 mg] 20 mg PO DAILY Metformin HCl 800 mg PO DAILY Tiotropium [place] Inhaler [Spiriva 18 Mcg/Cap Inhaler] 1 ea IH DAILY Duloxetine HCl 30 mg [Cymbalta 30 MG Capsule] 60 mg PO DAILY Budesonide/Formoterol Fumarate [Symbicort 80-4.5 Mcg Inhaler] 2 puff IH DAILY Albuterol 2.5 mg/3 ml Neb [Proventil 2.5 mg/3 ml Neb] 2.5 mg IH QID Fluticasone Propionate [Flonase NASAL] 2 sprays NS DAILY Fenofibrate Nanocrystallized [Tricor] 48 mg PO HS Ondansetron HCl 4 mg PO .PRN Loratadine 10 mg [Claritin 10 mg] 10 mg PO DAILY Multivitamin [[id number]] 1 each PO DAILY Instructions: Chronic Obstructive Pulmonary Disease Follow up with: GEO WHIPPLE MD [Primary Care Provider] - Forms: Patient Portal Information
[2016-11-07] MEDS ORDERED: VITAMIN D PO SCH (10:00)
== END 2016-11-05 14:47 | disposition home or self-care (01) | DRG 190 ==
LOC: ED 13:31 → MED SURG 17:59
PROVIDERS: ADMIT General Practice; ATTEND General Practice
DX: J44.1 Chronic obstructive pulmonary disease with (acute) exacerbation (principal); J18.9 Pneumonia, unspecified organism; I26.99 Other pulmonary embolism without acute cor pulmonale; E11.9 Type 2 diabetes mellitus without complications; G40.909 Epilepsy, unspecified, not intractable, without status epilepticus; E03.9 Hypothyroidism, unspecified; F41.8 Other specified anxiety disorders; I48.91 Unspecified atrial fibrillation; Z79.01 Long term (current) use of anticoagulants; Z79.899 Other long term (current) drug therapy; Z72.0 Tobacco use
CPT/HCPCS: 36000; 36415; 36600; 71010; 71260; 80053; 81000; 82375; 82803; 82962; 83036; 83605; 83880; 84484; 85025; 85379; 85610; 85730; 87040; 87070; 87086; 87430; 93005; 93041; 94002; 94640; 94760; 96372; 96374; G0008; J0456; J0696; J1650; J2930; P9612; 90682; A9270-GY